=== PATIENT | male | born 1995 | race Two or more races ===

== ENCOUNTER 2024-03-12 19:02 | Emergency (ER) | payer MEDICAID ==
[~2024-03-12] VITALS: Ht 172.7 cm; Wt 81.8 kg
[2024-03-12 19:46] LABS: BASOPHILS % (AUTO) 0.1 % (0.0-2.0); EOSINOPHILS % (AUTO) 0.2 % (1.0-6.0); HEMATOCRIT 52.2 % (41-53); HEMOGLOBIN 17.4 g/dL (13.5-17.5); LYMPHOCYTES # (AUTO) 0.7 K/uL (1.0-4.8); LYMPHOCYTES % (AUTO) 8.1 % (22.0-44.0); MEAN CORPUSCULAR HEMOGLOBIN 32.4 pg (26.0-34.0); MEAN CORPUSCULAR HGB CONC 33.3 G/dL (31.0-37.0); MEAN CORPUSCULAR VOLUME 97 fL (80-100); MONOCYTES # (AUTO) 0.5 K/uL (0.1-1.0); MONOCYTES % (AUTO) 5.3 % (2.0-9.0); NEUTROPHILS # (AUTO) 7.6 K/uL (1.8-7.7); PLATELET COUNT (AUTO) 268 K/uL (150-450); RED BLOOD CELL COUNT(AUTO) 5.37 MIL/uL (4.50-5.90); RED CELL DISTRIBUTION WIDTH 13.6 % (11.5-14.5); WHITE BLOOD COUNT (AUTO) 8.8 K/uL (4.5-11.0)
[2024-03-12 19:50] LABS: NEUTROPHILS % (AUTO) 86.3 % (40.0-70.0)
[2024-03-12 19:56] LABS: ANION GAP 13 mmol/L (8-16); CALCIUM, TOTAL 9.6 mg/dL (8.8-10.5); CARBON DIOXIDE 28 mmol/L (22-29); CHLORIDE 100 mmol/L (98-107); CREATININE 0.91 mg/dL (0.60-1.30); GLOMERULAR FILTR. RATE CALC > 60 mL/min (>60); GLUCOSE,RANDOM 111 mg/dL (70-110); LIPASE 21 U/L (16-77); POTASSIUM 3.3 mmol/L (3.5-5.1); SODIUM SERUM 141 mmol/L (136-145); UREA NITROGEN, BLOOD 7 mg/dL (7-18)
[2024-03-12 23:24] LABS: ALBUMIN 4.2 g/dL (3.4-5.0); BILIRUBIN,DIRECT 0.4 mg/dL (0.00-0.20); BILIRUBIN,TOTAL 1.8 mg/dL (0.1-1.0); TOTAL PROTEIN, SERUM 8.9 g/dL (6.4-8.2)
[2024-03-13] MEDS: PB/HYOSCY/ATR/SCOP/LIDO/MAALOX 55 ML BOTTLE PO ONE (00:29)
[2024-03-13] MEDS: ONDANSETRON HCL 4 MG/2 ML VIAL IVP ONE (00:29)
[2024-03-13] MEDS: SODIUM CHLORIDE 0.9% 1,000 ML IV ONE (00:30)
[2024-03-13] MEDS ORDERED: ONDA-104 PO (01:41)
[2024-03-13] MEDS ORDERED: ACET-66 PO (01:41)
[2024-03-13] MEDS ORDERED: MAG30ORA11 PO (01:41)
[2024-03-13] MEDS ORDERED: OMEP20 PO (01:41)
[2024-03-13 02:58] VITALS: BP 129/77; PULSE 79; RESP 16; TEMP 98.3
== END 2024-03-13 03:12 | disposition home or self-care (01) ==
LOC: EMS 19:02
DX: R10.13 Epigastric pain (principal); K29.70 Gastritis, unspecified, without bleeding; K76.0 Fatty (change of) liver, not elsewhere classified
CPT/HCPCS: 99285; 76700; 80048; 80076; 83690; 85025; 36415; 96374; 96361; J2405